=== PATIENT | female | born 1955 | race Caucasian/White ===

== ENCOUNTER → 2017-04-12 | Outpatient (CLI) | payer MEDICAID ==
--- NOTE | 2017-04-19 16:45 | RADIOLOGY REPORT (SQ) ---
EXAM DESCRIPTION: NM BONE SCAN LIMITED COMPLETED DATE/TIME: 04/12/2017 2:11 pm REASON FOR STUDY: PAIN IN R HIP M25.551 PAIN IN RIGHT HIP COMPARISON: Bilateral hip films 02/10/2017 RADIONUCLIDE AND DOSE: 21.3 millicuries Tc99m MDP. The route of agent administration: Intravenous. ADDITIONAL DRUGS AND DOSES: None. TECHNIQUE: Routine delayed images at 3 hours post radionuclide injection acquired of the bony skelet on including anterior and posterior whole-body projections and additional focused images as needed. LIMITATIONS: None. FINDINGS: BONES: Normal visualization without areas of photopenia or increased bony uptake of radiop harmaceutical. OTHER: No other significant finding. IMPRESSION: NORMAL BONE SCAN. COMMENT: Quality measure 147: Current bone scan is compared with any available plain radiographs, p rior bone scans, and CT/MRI. TECHNICAL DOCUMENTATION: JOB ID: [id number] [employer]- All Rights Reserved
== END ==
LOC: RAD 09:46
PROVIDERS: ATTEND Family Medicine
DX: M25.551 Pain in right hip (principal)
CPT/HCPCS: 78305; A9561; Q9969

== ENCOUNTER 2019-04-12 12:13 | Day surgery (SDC) | payer MEDICAID ==
[~2019-04-12 12:13] MED LIST: KETOROLAC TROMETHAMINE 0.45% 4 DROP/0.4 ML DROPERETTE OS PRN
[2019-04-12] MEDS: TETRACAINE HCL 0.5% OPH SOLN 4 ML OS PRN ×4 (12:43→13:20)
[2019-04-12] MEDS: CYCLOPENTOLATE 0.2%/PHENYLEPHRINE 1% OPH SOLN 2 ML OS PRN ×3 (12:44→13:05)
[2019-04-12] MEDS: BESIFLOXACIN HCL 0.6% OPH SUSP 5 ML BOTTLE OS PRN ×4 (12:44→13:41)
[2019-04-12] MEDS: TROPICAMIDE 1% OPH SOLN 15 ML OS PRN ×3 (12:44→13:05)
[2019-04-12] MEDS ORDERED: MIDAZOLAM 2 MG/2 ML INJ ONE (12:58)
[2019-04-12] MEDS: EPINEPHRINE INJ/PF 1 MG/1 ML AMPULE ONE ×2 (13:30)
[2019-04-12] MEDS: LIDOCAINE 1% INJ-PF (10 MG/ML) 30 ML SDV ONE ×2 (13:30)
[2019-04-12] MEDS: CHONDR SU A NA/HYALUR INTRAOC KIT (SURGICARE) ONE ×2 (13:30)
[2019-04-12] MEDS: DORZOLAMIDE HCL 2%/TIMOLOL MALEAT 0.5% OPH SOLN 10 ML OS PRN ×2 (13:41)
[2019-04-12] MEDS: TOBRAMYCIN SULFATE/DEXAMETH OPH OINTMENT 3.5 GM ONE ×2 (13:41)
== END 2019-04-12 14:14 | disposition home or self-care (01) ==
LOC: SC 12:13
PROVIDERS: ATTEND Ophthalmology
DX: H25.12 Age-related nuclear cataract, left eye (principal); Z79.899 Other long term (current) drug therapy; Z88.0 Allergy status to penicillin; Z88.2 Allergy status to sulfonamides; I11.9 Hypertensive heart disease without heart failure; E03.9 Hypothyroidism, unspecified; I25.2 Old myocardial infarction
CPT/HCPCS: 66984; V2632; J2250; J3490 ×5; J0171; 142

== ENCOUNTER 2019-05-03 06:31 | Day surgery (SDC) | payer MEDICAID ==
[~2019-05-03 06:31] MED LIST changes: +KETOROLAC TROMETHAMINE 0.45% 4 DROP/0.4 ML DROPERETTE OD PRN; -KETOROLAC TROMETHAMINE 0.45% 4 DROP/0.4 ML DROPERETTE OS PRN
[2019-05-03] MEDS: TROPICAMIDE 1% OPH SOLN 15 ML OD PRN ×3 (06:44→07:04)
[2019-05-03] MEDS: CYCLOPENTOLATE 0.2%/PHENYLEPHRINE 1% OPH SOLN 2 ML OD PRN ×3 (06:44→07:04)
[2019-05-03] MEDS: BESIFLOXACIN HCL 0.6% OPH SUSP 5 ML BOTTLE OD PRN ×4 (06:44→07:45)
[2019-05-03] MEDS: TETRACAINE HCL 0.5% OPH SOLN 4 ML OD PRN ×3 (06:45→07:28)
[2019-05-03] MEDS ORDERED: EPINEPHRINE INJ/PF 1 MG/1 ML AMPULE ONE (06:53)
[2019-05-03] MEDS ORDERED: LIDOCAINE 1% INJ-PF (10 MG/ML) 30 ML SDV ONE (06:53)
[2019-05-03] MEDS ORDERED: CHONDR SU A NA/HYALUR INTRAOC KIT (SURGICARE) ONE (06:54)
[2019-05-03] MEDS ORDERED: ONDANSETRON HCL INJ/PF 4 MG/2 ML SDV ONE (06:56)
[2019-05-03] MEDS ORDERED: MIDAZOLAM 2 MG/2 ML INJ ONE (06:56)
[2019-05-03] MEDS ORDERED: FENTANYL CITRATE INJ/PF 100 MCG/2 ML AMPUL ONE (06:57)
[2019-05-03] MEDS: TOBRAMYCIN SULFATE/DEXAMETH OPH OINTMENT 3.5 GM ONE ×2 (07:45)
[2019-05-03] MEDS: DORZOLAMIDE HCL 2%/TIMOLOL MALEAT 0.5% OPH SOLN 10 ML OD PRN ×2 (07:45)
== END 2019-05-03 08:18 | disposition home or self-care (01) ==
LOC: SC 06:31
PROVIDERS: ATTEND Ophthalmology
DX: H25.11 Age-related nuclear cataract, right eye (principal); Z98.42 Cataract extraction status, left eye; I11.9 Hypertensive heart disease without heart failure; E03.9 Hypothyroidism, unspecified; I25.2 Old myocardial infarction; Z87.891 Personal history of nicotine dependence; Z79.899 Other long term (current) drug therapy; Z88.0 Allergy status to penicillin; Z88.2 Allergy status to sulfonamides
CPT/HCPCS: 66984; V2632; J2250; J3490 ×5; J0171; J3010; J2405; 142

== ENCOUNTER 2020-01-17 21:17 | Emergency (ER) | payer MEDICAID ==
--- NOTE | 2020-01-17 22:12 | ER Document Report ---
ED Medical Screen (RME) - General Chief Complaint: Syncope Stated Complaint: POSSIBLE BROKEN ARM Time Seen by Provider: 01/17/20 22:06 Primary Care Provider: KRIS POLANCO PA-C [Primary Care Provider] - Follow up as needed Mode of Arrival: Medic Information source: Patient Notes: 64-year-old female presented to ED for chest pain house after she fell she has had pain in her left arm she could not get back up. She states her daughter was treated with anticoagulants prior to the emergency room tonight. She does have a history of [place] coronary artery disease CHF high blood pressure cholesterol hypothyroid depression bipolar. She does have a very painful swollen wrist left arm. She states she does not know why she passed out she was just walking and standing. I have greeted and performed a rapid initial assessment of this patient. A comprehensive ED assessment and evaluation of the patient, analysis of test results and completion of medical decision making process will be conducted by an additional ED providers. TRAVEL OUTSIDE OF THE [place] IN LAST 30 DAYS: No - Related Data Allergies/Adverse Reactions: Penicillins Allergy (Severe, Verified 05/03/19 06:50) Anaphylaxis Sulfa (Sulfonamide Antibiotics) Allergy (Severe, Verified 05/03/19 06:50) Anaphylaxis Past Medical History - Past Medical History Cardiac Medical History: Reports: Hx Heart Attack - ABT 4 YRS, Hx Hypertension Pulmonary Medical History: Denies: Hx Asthma Neurological Medical History: Denies: Hx Cerebrovascular Accident, Hx Seizures GI Medical History: Denies: Hx Hepatitis, Hx Hiatal Hernia, Hx Ulcer Musculoskeltal Medical History: Reports Hx Arthritis - Degenerative arthritis of her feet Psychiatric Medical History: Reports: Hx Bipolar Disorder, Hx Depression Infectious Medical History: Denies: Hx Hepatitis Past Surgical History: Reports: Hx Section. Denies: Hx Hysterectomy, Hx Mastectomy, Hx Open Heart Surgery, Hx Pacemaker - Immunizations Hx Diphtheria, Pertussis, Tetanus Vaccination: Yes Physical Exam - Vital signs Vitals: Temp Pulse Resp BP Pulse Ox 98.4 F 110 H 20 117/83 96 01/17/20 21:42 01/17/20 21:42 01/17/20 21:42 01/17/20 21:42 01/17/20 21:42 Course - Vital Signs Vital signs: Temp Pulse Resp BP Pulse Ox 98.4 F 110 H 20 117/83 96 01/17/20 21:42 01/17/20 21:42 01/17/20 21:42 01/17/20 21:42 01/17/20 21:42 Doctor's Discharge - Discharge Referrals: KRIS POLANCO PA-C [Primary Care Provider] - Follow up as needed
--- NOTE | 2020-01-17 23:09 | RADIOLOGY REPORT (SQ) ---
CLINICAL INDICATION: Syncope injury to left upper arm. Pain and deformity post trauma. TECHNIQUE: 2 view(s) were obtained of the left humerus. COMPARISON: None. FINDINGS: Acute impacted fracture of the surgical neck is identified. Rotation of the humeral head. Apparent avulsion of the greater tuberosity. Osteoarthritis. No other obvious bony injury is seen. Surrounding soft tissues are unremarkable. . IMPRESSION: Fracture of the surgical neck of the left humerus, as described.
--- NOTE | 2020-01-17 23:22 | RADIOLOGY REPORT (SQ) ---
EXAM DESCRIPTION: X-RAY CHEST- TWO VIEWS CLINICAL HISTORY: Syncope and injury to left upper arm COMPARISON: April 23, 2016 TECHNIQUE: 2 views of the chest FINDINGS: Findings related to left humerus fracture are separately reported and radiographs of the shoulder. Minimally displaced fracture of what appears to represent the right lateral fourth rib is stable when compared with prior chest radiograph. There are no discrete air space infiltrates, pneumothoraces or pleural effusions. The pulmonary vascularity is normal. The cardiomediastinal silhouette is normal in size. IMPRESSION: There are no acute lung parenchymal findings. Please see shoulder radiographs for further evaluation of this patient.
[2020-01-17 23:46] LABS: TOTAL CELLS COUNTED % (AUTO) 100 %
[2020-01-18] MEDS ORDERED: FENTANYL CITRATE INJ/PF 100 MCG/2 ML AMPUL IV ONE (00:11)
--- NOTE | 2020-01-18 01:04 | ER Document Report ---
ED General - General Chief Complaint: Syncope Stated Complaint: POSSIBLE BROKEN ARM Time Seen by Provider: 01/17/20 22:06 Primary Care Provider: JOSE DE JESUS RAMOS JR, DO [ACTIVE PROVISIONAL STAFF] - Follow up as needed KRIS POLANCO PA-C [Primary Care Provider] - Follow up as needed Mode of Arrival: Medic TRAVEL OUTSIDE OF THE [place] IN LAST 30 DAYS: No - HPI Notes: Patient is a 64-year-old female who presents to the emergency department for evaluation. Last night at approximately 2 AM she got up to go to the bathroom. She states she went to the bathroom, was walking back, when she fell. She is not really sure why she fell. She is unsure as to whether or not she felt dizzy. She denies tripping over anything. She did not hit her head, did not lose consciousness. She realized at that time that something was wrong with her arm, was unable to get up under her own power. She lied on the floor for approximately 25 minutes until her daughter came to help her. She states that she continues to have pain in her left arm, so she presents to the ER for further evaluation. She denies any numbness or tingling. On further questioning the patient is started doxepin 5 or 6 days ago. She states that she has been very drowsy and dizzy since starting this medication. She attributes the fall to the doxepin. - Related Data Allergies/Adverse Reactions: Penicillins Allergy (Severe, Verified 05/03/19 06:50) Anaphylaxis Sulfa (Sulfonamide Antibiotics) Allergy (Severe, Verified 05/03/19 06:50) Anaphylaxis Home Medications: amilodipine, requip, levothyroxine, doxepin, robaxin, loratadine, low dose asa, lisinopril, clozapam, lasix, abilify Past Medical History - General Information source: Patient - Social History Smoking Status: Former Smoker Family History: CAD, DM Patient has homicidal ideation: No - Past Medical History Cardiac Medical History: Reports: Hx Congestive Heart Failure, Hx Coronary Artery Disease, Hx Heart Attack - ABT 4 YRS, Hx Hypertension Pulmonary Medical History: Denies: Hx Asthma Neurological Medical History: Denies: Hx Cerebrovascular Accident, Hx Seizures GI Medical History: Denies: Hx Hepatitis, Hx Hiatal Hernia, Hx Ulcer Musculoskeletal Medical History: Reports Hx Arthritis - Degenerative arthritis of her feet Psychiatric Medical History: Reports: Hx Bipolar Disorder, Hx Depression Infectious Medical History: Denies: Hx Hepatitis Past Surgical History: Reports: Hx Section. Denies: Hx Hysterectomy, Hx Mastectomy, Hx Open Heart Surgery, Hx Pacemaker - Immunizations Hx Diphtheria, Pertussis, Tetanus Vaccination: Yes Review of Systems - Review of Systems Constitutional: No symptoms reported EENT: No symptoms reported Cardiovascular: No symptoms reported Respiratory: No symptoms reported Gastrointestinal: No symptoms reported Genitourinary: No symptoms reported Musculoskeletal: See HPI Skin: No symptoms reported Neurological/Psychological: No symptoms reported Physical Exam - Vital signs Vitals: Temp Pulse Resp BP Pulse Ox 98.4 F 110 H 20 117/83 96 01/17/20 21:42 01/17/20 21:42 01/17/20 21:42 01/17/20 21:42 01/17/20 21:42 - Notes Notes: Vital signs reviewed, please refer to chart. Head is normocephalic, atraumatic. Pupils equal round, reactive to light. Neck is supple without meningismus. Heart is regular rate and rhythm. Lungs are clear to auscultation bilaterally. Abdomen is soft, nontender, normoactive bowel sounds throughout. Extremities without cyanosis, clubbing. Posterior calves are nontender. Peripheral pulses are equal. Skin is warm and dry. Examination of the left upper extremity yields deformity at the left shoulder with extensive ecchymosis and edema. She is full range of motion at the elbow, wrist, fingers, thumb. No paresthesias or diminished sensation in the distribution of the axillary nerve. Plus 5 out of 5 wet machine tender strength, capillary refill is brisk, radial pulse 2+. Patient is awake, alert, oriented x3. Cranial nerves II - XII are grossly intact without focal neurological deficits. Strength is plus 5 out of 5 bilateral upper and lower extremities. Sensation is intact. Reflexes symmetrical. Intact [id number], rapid alternating movements, [id number]. Course - Re-evaluation Re-evalutation: 01/18/20 01:04 Patient is a 64-year-old female who presents to the emergency department for evaluation. She fell, sustained a surgical neck fracture of the humerus on the left. She is neurovascularly intact distally. She is placed in a shoulder immobilizer. Laboratory investigations were obtained. My suspicion is that this is as a side effect of her doxepin. She is mildly hypotensive. I am awaiting chemistries, but the patient also doses her own Lasix based on the pre sence or absence of edema. Between this, the Abilify, and other sedating medications, I suspect they are responsible for her symptoms. The patient states she has been extremely drowsy since taking the doxepin and she would like to quit taking it. She has been on it for less than a week. At this point, patient is stable, we will continue to monitor. 01/18/20 01:42 Still awaiting blood work, but patient's shoulder immobilizer is in place. She is neurovascularly intact still. I talked to her about her orthostatic blood pressures. She is not overly dehydrated, but her blood pressure did drop positionally. She admits she has been taking 2 Lasix daily for quite some time, and has not had edema for quite some time. I recommended the patient that she back off and only take 1 Lasix until her edema returns, or at least until directed by another provider. She voiced understanding. Patient is currently stable, awaiting further labs. 01/18/20 03:54 Notified by nursing at discharge the patient's heart rate was 108 and her blood pressure was in the 90s. I went back to evaluate the patient. She has absolutely no symptoms whatsoever. I do suspect she is slightly dry, but she was resistant to receiving any IV fluids. I told her she should not take any Lasix today at all. She voiced understanding. Nursing was present. The patient states that her only complaint at this time is pain in her left shoulder. Again she is reminded to not take Lasix today. She is to resume taking only one Lasix daily and follow-up closely with her primary care provider. - Vital Signs Vital signs: Temp Pulse Resp BP Pulse Ox 98.4 F 105 H 19 102/76 94 01/17/20 21:42 01/18/20 01:17 01/18/20 02:31 01/18/20 02:31 01/18/20 02:31 - Laboratory Result Diagrams: 01/18/20 01:39 01/18/20 01:39 Laboratory results interpreted by me: 01/18/20 01/18/20 01/18/20 01:39 01:39 03:13 WBC 12.0 H RDW 14.9 H Lymph % (Auto) 10.0 L Absolute Neuts (auto) 9.6 H Seg Neutrophils % 79.8 H Creatinine 1.36 H Est GFR ( Amer) 47 L Est GFR (MDRD) Non-Af 39 L Glucose 139 H Creatine Kinase 426 H Urine Protein 30 H Urine Blood SMALL H Ur Leukocyte Esterase LARGE H - Diagnostic Test Radiology reviewed: Image reviewed, Reports reviewed Radiology results interpreted by me: 01/18/20 01:07 Chest X-Ray 01/17/20 22:12 IMPRESSION: There are no acute lung parenchymal findings. Please see shoulder radiographs for further evaluation of this patient. Humerus X-Ray 01/17/20 22:12 IMPRESSION: Fracture of the surgical neck of the left humerus, as described. - EKG Interpretation by Me Additional EKG results interpreted by me: 01/18/20 01:07 Sinus mechanism with a rate of 93 bpm. Normal axis and intervals. No acute ST changes concerning for ischemia or infarction. Much improved for ischemic changes when compared to prior study. Discharge - Discharge Clinical Impression: Closed fracture of left proximal humerus Condition: Stable Disposition: HOME, SELF-CARE Instructions: Fracture Proximal Humerus Additional Instructions: Stow as needed for severe pain. Please watch for dizziness, drowsiness, constipation with this medication. Please take with food. I suspect that your dizziness and fall may have been secondary to the doxepin. Discussed discont inue this medication with your provider. Otherwise, follow-up with orthopedics this week in regards to your fracture. Return to the emergency department with worsening or new concerning symptoms of any sort. Referrals: KRIS POLANCO PA-C [Primary Care Provider] - Follow up as needed JOSE DE JESUS RAMOS JR, DO [ACTIVE PROVISIONAL STAFF] - Follow up as needed
[2020-01-18 02:04] LABS: ABSOLUTE BASOPHILS # (AUTO) 0.1 10^3/uL (0.0-0.2); ABSOLUTE LYMPHOCYTES (AUTO) 1.2 10^3/uL (0.5-4.7); ABSOLUTE MONOCYTES (AUTO) 1.1 10^3/uL (0.1-1.4); ABSOLUTE NEUT (AUTO) 9.6 10^3/uL (1.7-8.2); BASOPHILS % (AUTO) 0.6 % (0-2); EOSINOPHILS % (AUTO) 0.2 % (0-6); HEMATOCRIT 39.5 % (36.0-47.0); HEMOGLOBIN 12.8 g/dL (12.0-15.5); MEAN CORPUSCULAR HEMOGLOBIN 28.3 pg (27.0-33.4); MEAN CORPUSCULAR HGB CONC 32.5 g/dL (32.0-36.0); MEAN CORPUSCULAR VOLUME 87 fl (80-97); MONOCYTES % (AUTO) 9.4 % (3-13); PLATELET COUNT 283 10^3/uL (150-450); RED BLOOD COUNT 4.54 10^6/uL (3.72-5.28); RED CELL DISTRIBUTION WIDTH 14.9 % (11.5-14.0); SEGMENTED NEUTROPHILS % (AUTO) 79.8 % (42-78); TOTAL CELLS COUNTED % (AUTO) 100 %
[2020-01-18 02:17] LABS: ALKALINE PHOSPHATASE 120 U/L (38-126); ANION GAP 11 (5-19); ASPARTATE AMINO TRANSFERASE 25 U/L (14-36); BILIRUBIN,DIRECT 0.3 mg/dL (0.0-0.4); BILIRUBIN,TOTAL 0.5 mg/dL (0.2-1.3); BLOOD UREA NITROGEN 17 mg/dL (7-20); CALCIUM 8.8 mg/dL (8.4-10.2); CARBON DIOXIDE 25 mmol/L (22-30); CHLORIDE 103 mmol/L (98-107); CREATINE KINASE 426 U/L (30-135); GLUCOSE 139 mg/dL (75-110); POTASSIUM 3.9 mmol/L (3.6-5.0); TOTAL PROTEIN 6.7 g/dL (6.3-8.2)
[2020-01-18 03:25] LABS: APPEARANCE,URINE CLOUDY; BILIRUBIN,URINE NEGATIVE (NEGATIVE); COLOR,URINE AMBER; GLUCOSE, URINE NEGATIVE (NEGATIVE); KETONES,URINE NEGATIVE (NEGATIVE); LEUKOCYTE ESTERASE,URINE LARGE (NEGATIVE); NITRITE,URINE NEGATIVE (NEGATIVE); PROTEIN,URINE 30 mg/dL (NEGATIVE); URINE SPECIFIC GRAVITY 1.014; UROBILINOGEN,URINE NEGATIVE mg/dL (<2.0)
[2020-01-18 03:30] LABS: ADD MANUAL MICROSCOPIC YES; WBC,URINE 30-50 /HPF
[2020-01-18] MEDS ORDERED: HYDROCODONE/ACETAMINOPHEN 5-325 MG (6 TAB/ER DISP) PO PRN (03:39)
[2020-01-18 04:05] VITALS: BP 91/68
--- NOTE | 2020-01-18 10:11 | EKG REPORT ---
SEVERITY:- NORMAL ECG - SINUS RHYTHM : Confirmed by: Colette Chisholm MD 18-Jan-2020 10:11:13
== END 2020-01-18 03:36 | disposition home or self-care (01) ==
LOC: ER 21:17
DX: S42.202A Unspecified fracture of upper end of left humerus, initial encounter for closed fracture (principal); R55 Syncope and collapse; R42 Dizziness and giddiness; W19.XXXA Unspecified fall, initial encounter; Z88.0 Allergy status to penicillin; Z88.2 Allergy status to sulfonamides; Z79.899 Other long term (current) drug therapy; Z79.82 Long term (current) use of aspirin; I50.9 Heart failure, unspecified; I25.10 Atherosclerotic heart disease of native coronary artery without angina pectoris; I25.2 Old myocardial infarction; I11.0 Hypertensive heart disease with heart failure; Z87.891 Personal history of nicotine dependence
CPT/HCPCS: 93005; 99285; 96374; 36415; 87086; 82550; 85025; 80053; 81001; 84484; 71046; 73060; 93010; J3010

== ENCOUNTER → 2020-02-01 | Outpatient (CLI) | payer MEDICARE, MEDICAID ==
--- NOTE | 2020-02-01 16:11 | RADIOLOGY REPORT (SQ) ---
EXAM DESCRIPTION: CT LT UPPER EXTREMITY WITHOUT IMAGES COMPLETED DATE/TIME: 02/01/2020 3:40 pm REASON FOR STUDY: S42.212A UNSP DISP FX OF SURGICAL NECK OF LEFT HUMERUS, INIT COMPARISON: None. TECHNIQUE: Axial imaging performed through the Left shoulder and proximal humerus. with reformatted coronal and sagittal imaging windowed for bone and soft tissues. Images saved to PAC S. 3D IMAGING: Were 3D images as MIP, SSD, or volume rendering performed at the work station? Yes LIMITATIONS: None. FINDINGS: SOFT TISSUES: No foreign body. BONY STRUCTURES: Comminuted fracture of the surgical neck with greater than 1 cm of posterior displac ement the greater tuberosity. Anterior subluxation of the humeral head. MINERALIZATION: Normal. OTHER: No other significant finding. IMPRESSION: Surgical neck fracture as described. Reading location - IP/workstation name: [email or web address]
== END ==
LOC: RAD 15:26
PROVIDERS: ATTEND Orthopaedic Surgery
DX: S42.212A Unspecified displaced fracture of surgical neck of left humerus, initial encounter for closed fracture (principal); X58.XXXA Exposure to other specified factors, initial encounter; Y93.9 Activity, unspecified; Y92.9 Unspecified place or not applicable

== ENCOUNTER → 2020-02-06 | Outpatient (CLI) | payer MEDICARE, MEDICAID ==
[2020-02-06 16:54] LABS: ABSOLUTE BASOPHILS # (AUTO) 0.2 10^3/uL (0.0-0.2); ABSOLUTE EOSINOPHILS # (AUTO) 0.1 10^3/uL (0.0-0.6); ABSOLUTE LYMPHOCYTES (AUTO) 1.9 10^3/uL (0.5-4.7); ABSOLUTE MONOCYTES (AUTO) 0.5 10^3/uL (0.1-1.4); ABSOLUTE NEUT (AUTO) 6.2 10^3/uL (1.7-8.2); BASOPHILS % (AUTO) 1.7 % (0-2); EOSINOPHILS % (AUTO) 1.1 % (0-6); HEMATOCRIT 37.3 % (36.0-47.0); HEMOGLOBIN 12.5 g/dL (12.0-15.5); LYMPHOCYTES % (AUTO) 21.7 % (13-45); MEAN CORPUSCULAR HEMOGLOBIN 29.1 pg (27.0-33.4); MEAN CORPUSCULAR HGB CONC 33.6 g/dL (32.0-36.0); MEAN CORPUSCULAR VOLUME 87 fl (80-97); PLATELET COUNT 433 10^3/uL (150-450); RED CELL DISTRIBUTION WIDTH 14.8 % (11.5-14.0); SEGMENTED NEUTROPHILS % (AUTO) 69.5 % (42-78); TOTAL CELLS COUNTED % (AUTO) 100 %; WHITE BLOOD COUNT 8.9 10^3/uL (4.0-10.5)
[2020-02-06 16:57] LABS: APPEARANCE,URINE SLIGHTLY-CLOUDY; BILIRUBIN,URINE NEGATIVE (NEGATIVE); COLOR,URINE STRAW; GLUCOSE, URINE NEGATIVE (NEGATIVE); KETONES,URINE NEGATIVE (NEGATIVE); LEUKOCYTE ESTERASE,URINE SMALL (NEGATIVE); NITRITE,URINE NEGATIVE (NEGATIVE); PROTEIN,URINE NEGATIVE (NEGATIVE); URINE SPECIFIC GRAVITY 1.004; UROBILINOGEN,URINE NEGATIVE mg/dL (<2.0)
[2020-02-06 17:22] LABS: ALBUMIN 4.3 g/dL (3.5-5.0); ANION GAP 11 (5-19); BLOOD UREA NITROGEN 15 mg/dL (7-20); CALCIUM 9.4 mg/dL (8.4-10.2); CARBON DIOXIDE 24 mmol/L (22-30); CHLORIDE 103 mmol/L (98-107); GLUCOSE 95 mg/dL (75-110); POTASSIUM 3.8 mmol/L (3.6-5.0)
[2020-02-06 17:23] LABS: C-REACTIVE PROTEIN < 5.0 mg/L (<10.0)
[2020-02-06 17:57] LABS: ERYTHROCYTE SEDIMENTATION RATE 15 mm/hr (0-30)
--- NOTE | 2020-02-07 00:46 | EKG REPORT ---
SEVERITY:- NORMAL ECG - SINUS RHYTHM : Confirmed by: Sb Barragan 07-Feb-2020 00:46:07
--- NOTE | 2020-02-07 08:49 | RADIOLOGY REPORT (SQ) ---
EXAM DESCRIPTION: CHEST PA/LATERAL IMAGES COMPLETED DATE/TIME: 02/06/2020 4:31 pm REASON FOR STUDY: PRE-OP COMPARISON: 04/23/2016 EXAM PARAMETERS: NUMBER OF VIEWS: two views TECHNIQUE: Digital Frontal and Lateral radiographic views of the chest acquired. RADIATION DOSE: NA LIMITATIONS: Patient unable to lift the left arm for the lateral projection. FINDINGS: LUNGS AND PLEURA: No opacities, masses or pneumothorax. No pleural effusion. MEDIASTINUM AND HILAR STRUCTURES: No masses or contour abnormalities. HEART AND VASCULAR STRUCTURES: Heart normal size. No evidence for failure. BONES: Proximal left humerus fracture. HARDWARE: None in the chest. OTHER: No other significant finding. IMPRESSION: No acute findings in the chest. Fracture of the left proximal humerus. TECHNICAL DOCUMENTATION: JOB ID: [id number] 2010 [employer]- All Rights Reserved Reading location - IP/workstation name: [email or web address]
== END ==
LOC: OD 15:36
PROVIDERS: ATTEND Orthopaedic Surgery
DX: Z01.810 Encounter for preprocedural cardiovascular examination (principal); Z01.811 Encounter for preprocedural respiratory examination; Z01.812 Encounter for preprocedural laboratory examination; S42.202A Unspecified fracture of upper end of left humerus, initial encounter for closed fracture; X58.XXXA Exposure to other specified factors, initial encounter
CPT/HCPCS: 36415; 71046; 80048; 81001; 82040; 82306; 83036; 85025; 85652; 86140; 93005; 93010

== ENCOUNTER 2020-02-20 05:29 | Inpatient (IN) | payer MEDICARE, MEDICAID ==
[~2020-02-20 05:29] MED LIST changes: +ACETAMINOPHEN 325 MG TABLET PO PRN; +CEFAZOLIN 2 GM/D5W RTU 2 GM/50 ML RTUPB IV PRN; +CELECOXIB 200 MG CAPSULE PO PRN; +GABAPENTIN 100 MG CAPSULE PO PRN; -KETOROLAC TROMETHAMINE 0.45% 4 DROP/0.4 ML DROPERETTE OD PRN; +LACTATED RINGERS 1000 ML IV PRN; +LIDOCAINE 0.5% INJ-PF (5 MG/ML) 50 ML SDV SUBCUT PRN; +OXYCODONE HCL SR 10 MG TABLET PO PRN; +SCOPOLAMINE HYDROBROMIDE 1.5 MG PATCH.TD72 TD PRN; +TRAMADOL HCL 50 MG TABLET PO PRN; +TRANEXAMIC ACID INJ/PF 1,000 MG/10 ML SDV IV PRN; +VANCOMYCIN HCL 1,000 MG in DEXTROSE 5%-WATER 250 ML IV PRN
[2020-02-20] MEDS ORDERED: SCOPOLAMINE HYDROBROMIDE 1.5 MG PATCH.TD72 ONE (06:22)
[2020-02-20] MEDS ORDERED: OXYCODONE HCL SR 10 MG TABLET PO ONE (06:22)
[2020-02-20] MEDS ORDERED: CELECOXIB 200 MG CAPSULE ONE (06:22)
[2020-02-20] MEDS ORDERED: CEFAZOLIN 2 GM/D5W RTU 2 GM/50 ML RTUPB IV ONE (06:22)
[2020-02-20] MEDS ORDERED: GABAPENTIN 100 MG CAPSULE ONE (06:22)
[2020-02-20] MEDS ORDERED: ACETAMINOPHEN 325 MG TABLET ONE (06:22)
[2020-02-20] MEDS ORDERED: TRAMADOL HCL 50 MG TABLET ONE (06:22)
[2020-02-20] MEDS ORDERED: FENTANYL CITRATE INJ/PF 250 MCG/5 ML AMPULE ONE ×2 (06:54→09:32)
[2020-02-20] MEDS ORDERED: MIDAZOLAM 2 MG/2 ML INJ ONE (06:54)
[2020-02-20] MEDS ORDERED: ONDANSETRON HCL INJ/PF 4 MG/2 ML SDV ONE (06:54)
[2020-02-20] MEDS ORDERED: EPHEDRINE SULFATE INJ 50 MG/1 ML AMPULE ONE (06:54)
[2020-02-20] MEDS ORDERED: DEXAMETHASONE SOD PHOS INJ 10 MG/1 ML VIAL IV ONE ×2 (06:55→14:00)
[2020-02-20] MEDS ORDERED: ONDANSETRON 4 MG TAB.RAPDIS PO PRN (06:55)
[2020-02-20] MEDS ORDERED: PANTOPRAZOLE SODIUM 20 MG TABLET.DR PO ONE (06:55)
[2020-02-20] MEDS ORDERED: TRANEXAMIC ACID INJ/PF 1,000 MG/10 ML SDV IV ONE (06:55)
[2020-02-20] MEDS ORDERED: MORPHINE SULFATE 10 MG/ML INJ IV PRN ×3 (06:55→08:53)
[2020-02-20] MEDS ORDERED: NORMAL SALINE 1000 ML 1,000 ML IV ONE (06:55)
[2020-02-20] MEDS ORDERED: PROPOFOL INJ 200 MG/20 ML VIAL IV ONE (06:55)
[2020-02-20] MEDS ORDERED: DOCUSATE SODIUM 100 MG CAPSULE PO PRN (06:55)
[2020-02-20] MEDS ORDERED: OXYCODONE HCL IR 5 MG TABLET PO PRN ×3 (06:55)
[2020-02-20] MEDS ORDERED: TRAMADOL HCL 50 MG TABLET PO PRN (06:55)
[2020-02-20] MEDS ORDERED: ZOLPIDEM TARTRATE 5 MG TABLET PO PRN (06:55)
[2020-02-20] MEDS ORDERED: DIPHENHYDRAMINE HCL 25 MG CAPSULE PO PRN (06:55)
[2020-02-20] MEDS ORDERED: ALBUTEROL SULFATE HFA (90 MCG/PUFF) 8 GM MDI (1 MDI/ER DISP) IH PRN (06:58)
[2020-02-20] MEDS ORDERED: ROPIVACAINE HCL 0.5% INJ/PF (5 MG/1 ML) 30 ML SDV ONE (07:06)
[2020-02-20] MEDS ORDERED: KETOROLAC TROMETHAMINE INJ/PF 30 MG/1 ML SDV ONE (07:18)
[2020-02-20] MEDS ORDERED: VANCOMYCIN HCL INJ 1000 MG VIAL ONE (07:18)
[2020-02-20] MEDS ORDERED: BUPIVACAINE HCL 0.25% /EPINEPHRINE INJ/PF 30 ML SDV ONE (07:19)
[2020-02-20] MEDS ORDERED: MEPERIDINE HCL/PF INJ 25 MG/1 ML DISP.SYRIN IV PRN (08:53)
[2020-02-20] MEDS ORDERED: DIPHENHYDRAMINE HCL 50 MG/ML VIAL IV PRN (08:53)
[2020-02-20] MEDS ORDERED: PROMETHAZINE HCL INJ 25 MG/1 ML VIAL IV PRN ×2 (08:53)
[2020-02-20] MEDS ORDERED: ONDANSETRON HCL INJ/PF 4 MG/2 ML SDV IV PRN (08:53)
[2020-02-20] MEDS ORDERED: OXYCODONE-ACETAMINOPHEN 5-325 MG TABLET PO PRN ×2 (08:53)
[2020-02-20] MEDS ORDERED: FENTANYL CITRATE INJ/PF 100 MCG/2 ML AMPUL IV PRN ×3 (08:53)
[2020-02-20] MEDS ORDERED: TRANEXAMIC ACID INJ/PF 1,000 MG/10 ML SDV ONE (08:55)
[2020-02-20] MEDS ORDERED: ALBUTEROL SULFATE HFA (90 MCG/PUFF) 8 GM MDI IH PRN (09:44)
[2020-02-20] MEDS ORDERED: FLUTICASONE NASAL SPRAY 50 MCG/SPRY 120 SPRAY/16 GM NASL SCH (10:00)
[2020-02-20] MEDS ORDERED: LEVOTHYROXINE SODIUM 0.025 MG TABLET PO SCH (10:00)
[2020-02-20] MEDS ORDERED: (PENDING PHARMACY ID) (Lisinopril [Lisinopril] 20 MG) PO SCH (10:00)
[2020-02-20] MEDS ORDERED: ARIPIPRAZOLE 15 MG PO SCH (10:00)
[2020-02-20] MEDS ORDERED: PANTOPRAZOLE SODIUM 20 MG TABLET.DR PO SCH (10:00)
[2020-02-20] MEDS ORDERED: FENTANYL CITRATE INJ/PF 100 MCG/2 ML AMPUL ONE (11:25)
--- NOTE | 2020-02-20 11:44 | Operative Report ---
Operative Report DATE OF SURGERY: 02/20/20 PREOPERATIVE DIAGNOSIS: Comminuted closed left proximal humerus fracture POSTOPERATIVE DIAGNOSIS: Comminuted closed left proximal humerus fracture OPERATION: Left reverse total shoulder arthroplasty SURGEON: JOSE DE JESUS RAMOS JR ANESTHESIA: GA TISSUE REMOVED OR ALTERED: None COMPLICATIONS: None ESTIMATED BLOOD LOSS: 300 cc PROCEDURE: Implants: [employer] equinox reverse total shoulder +0 humeral tray, +0 36 mm humeral liner, 36 mm reverse small glenosphere, a 10 mm press-fit stem Patient sustained a left proximal humerus fracture approximately 1 month ago. Initially the reduction appeared appropriate for nonoperative management however upon subsequent visits in the office it was apparent that the displacement was considerable including transient potential dislocation of the humeral head with inability for the patient to move her arm and ongoing deformity and pain. Due to these changes and the patient desire to achieve a good functional outcome we proceeded with left reverse total shoulder arthroplasty. The patient was brought to the operating suite laid supine on the operating table. They are placed under general anesthesia. Preoperatively there given a scalene block. There were given 2 g Ancef and 1 g of vancomycin. After adequate anesthesia the patient was placed into beachchair position and the left upper extremity was then prepped and draped in sterile sterile fashion. An appropriate timeout was performed and incision was made to the left shoulder. A standard deltopectoral approach was performed. The cephalic vein was encountered and taken laterally. Upon reaching clavipectoral fascia the ability to identify the bicipital groove and the biceps was difficult. This is due to 1 month of significant deformity and displacement. I was able to carefully dissect around the deltoid bluntly, followed by identifying the pectoral insertion and then proceeding to identify the bicipital groove and then carried this into the glenohumeral joint through the capsule. After doing this we were able to remove the humeral head. The greater tuberosity fragment was quite large and adherent to the posterior capsular tissue. This took a significant amount of gentle retraction and careful dissection in order to release it off of the posterior capsule. Upon releasing it were able to get 2 sutures placed through the tendon bone interface however the amount of excursion that I was able to get was disappointing. We turned our attention to the subscapularis which was also retracted and scarred into place with a bony fragment at the level of the glenoid. Careful dissection allowed for freeing this from the surrounding tissue and then placing 2 sutures through the tendon to bone interface. The sutures were snapped and used to help retract and gain access to the joint. We then turned our attention to the humerus and reamed up until we achieved a 13 reamer. The patient was small and the height of 5-1/2 cm off of the proximal pack coral insertion appeared to lead to a implant that was too proud. We turned our attention to the glenoid and plan to return to the humerus at the time that we could appropriately reduce and assess tension. The periphery of the glenoid was carefully exposed taking care to remain on bone with any release of capsular structures both inferiorly posteriorly and anteriorly. The biceps tendon was found to be ruptured and this was removed to its stump at the superior glenoid. Bone fragments were removed. We then exposed the coracoid and secured the GPS tracker with 2 screws. Following this we were able to gain appropriate acquisition of our data points for registration. The GPS drill was initially introduced and ensured appropriate position with the GPS computer, followed by the larger drill bit, followed by the small reamer and subsequently the large reamer. We were satisfied with the amount of bony resection and coverage. The small glenoid baseplate was then selected. The cage was packed with morselized humeral head bone. The glenohumeral joint was then copiously irrigated with sterile saline solution. Baseplate was then impacted into place. Using navigation screws were drilled, measured, and placed into the available bone. Excellent bite was achieved in all 4 screws and the locking caps were placed on top. The glenosphere was placed onto a clean and dried baseplate and then screwed in place. We then returned to the humerus where we trialed with a size 10 standard stem. I was able to impact this to a point that a significant of great blast was approximating the metaphyseal bone. Upon reduction with a 0 humeral tray and 0 humeral liner we achieved excellent range of motion, tension, instability. Due to the significant bone loss the decision was made to cement. The wound was copiously irrigated again. 2 drill holes were made on the lateral cortex of the humerus and a #2 FiberWire was passed through in order to allow for subsequent vertical suture use. A Gelfoam was placed on the humeral canal as a cement restrictor. Cement was inserted into the proximal humerus, the stem was then gently introduced and then lightly impacted in place. After appropriate cement duration, a 0 baseplate was screwed onto the humeral stem. The 0 humeral liner was then impacted into place. The shoulder was reduced and again achieved excellent balance. The tuberosities were then approximated as close as possible. Given the chronicity of the fracture, it was difficult to achieve full excursion of the tendons. The tuberosities were sutured in place followed by the vertical suture through the humerus that was then incorporated into this construct and used to keep superior and proximal migration of the tuberosities. The wound again was copiously irrigated, followed by application of 1 g of vancomycin into the joint. A small amount of this was preserved in order to use in the soft tissue. The deltopectoral interval was then closed with a running locked 2-0 PDS. After achieving a tight closure of this interval, the wound was irrigated again followed by application of the final amount of vancomycin. Subcutaneous tissue was then closed with a running barbed 2-0 Monocryl. A running barbed 3-0 Monocryl was used in the skin. Sterile dressing was then rosario mounika. The patient was awakened from anesthesia and transferred to PACU in stable condition.
--- NOTE | 2020-02-20 12:40 | RADIOLOGY REPORT (SQ) ---
EXAM DESCRIPTION: SHOULDER LEFT 2 OR MORE VIEWS IMAGES COMPLETED DATE/TIME: 02/20/2020 12:26 pm REASON FOR STUDY: post op S42.212A UNSP DISP FX OF SURGICAL NECK OF LEFT HUMERUS, INIT COMPARISON: 02/06/2020. NUMBER OF VIEWS: Three views. TECHNIQUE: Internal rotation, external rotation, and Y view images acquired of the left shoulder. LIMITATIONS: None. FINDINGS: Surgical neck fracture status post interval reverse shoulder arthroplasty. No unexpected findings. Visualize lungs clear. IMPRESSION: Interval reverse shoulder arthroplasty. TECHNICAL DOCUMENTATION: JOB ID: [id number] 2010 [employer]- All Rights Reserved Reading location - IP/workstation name: [email or web address]
[2020-02-20] MEDS ORDERED: SUCCINYLCHOLINE CHLORIDE INJ 200 MG/10 ML VIAL ONE (13:21)
[2020-02-20] MEDS: ACETAMINOPHEN 325 MG TABLET PO SCH ×2 (13:43→18:37)
[2020-02-20] MEDS: AMLODIPINE BESYLATE 5 MG TABLET PO SCH (13:43)
[2020-02-20] MEDS: ARIPIPRAZOLE 5 MG TABLET PO SCH (13:44)
[2020-02-20] MEDS: FUROSEMIDE 20 MG TABLET PO SCH (13:44)
[2020-02-20] MEDS: LORATADINE 10 MG TABLET PO SCH (13:44)
[2020-02-20] MEDS: POLYETHYLENE GLYCOL 3350 POWDER 17 GM/1 PACKET PO SCH (13:45)
[2020-02-20] MEDS: GABAPENTIN 100 MG CAPSULE PO SCH ×2 (13:45→21:20)
[2020-02-20] MEDS: KETOROLAC TROMETHAMINE INJ/PF 30 MG/1 ML SDV IV SCH ×2 (13:53→21:21)
[2020-02-20] MEDS ORDERED: CEFAZOLIN 2 GM/D5W RTU 2 GM/50 ML RTUPB IV SCH (14:00)
[2020-02-20] MEDS: CEFAZOLIN SODIUM 2 GM in DEXTROSE 5%-WATER 100 ML IV SCH ×2 (15:44→21:20)
[2020-02-20] MEDS: OXYCODONE HCL IR 5 MG TABLET PO PRN ×2 (15:52→19:55)
[2020-02-20] MEDS: PANTOPRAZOLE SODIUM 20 MG TABLET.DR PO SCH (17:10)
[2020-02-20] MEDS: LISINOPRIL 10 MG TABLET PO SCH (21:20)
[2020-02-20] MEDS ORDERED: ROPINIROLE HCL 3 MG PO SCH (22:00)
[2020-02-20] MEDS ORDERED: ROPINIROLE HCL 1 MG TABLET PO SCH (22:00)
[2020-02-21] MEDS: ACETAMINOPHEN 325 MG TABLET PO SCH ×3 (00:04→11:58)
[2020-02-21] MEDS: OXYCODONE HCL IR 5 MG TABLET PO PRN ×3 (01:53→12:00)
[2020-02-21] MEDS: KETOROLAC TROMETHAMINE INJ/PF 30 MG/1 ML SDV IV SCH ×2 (05:09→14:42)
[2020-02-21] MEDS ORDERED: LEVOTHYROXINE SODIUM 0.025 MG TABLET PO SCH (06:00)
--- NOTE | 2020-02-21 08:01 | PDOC PROGRESS REPORT ---
Subjective Progress Note for:: 02/21/20 Subjective:: Pain well controlled. Patient has been working well with physical therapy overnight. No acute events overnight. Reason For Visit: S42.212A UNSP DISP FX OF SURGICAL NECK OF LEFT HUM Physical Exam Vital Signs: Temp Pulse Resp BP Pulse Ox 98.0 F 72 16 139/63 H 98 02/21/20 05:06 02/21/20 05:06 02/21/20 05:06 02/21/20 05:06 02/21/20 05:06 Intake & Output 02/20/20 02/21/20 02/22/20 06:59 06:59 06:59 Intake Total 0 5080 Output Total 1200 Balance 0 3880 Physical Exam: No acute distress, alert and oriented x3 Left upper extremity sensation grossly intact to radial median and ulnar nerve. And axillary upper extremity motor function grossly intact to radian median ulnar nerve AIN and PIN and axillary Pulses 2+, capillary refill less than 2 seconds No deformity noted full range of motion of the elbow shoulder wrist and fingers without pain Compartments soft, no tenderness to palpation Dressing clean dry and intact. Sling in place Results Laboratory Results: 02/20/20 06:36 Impressions: Shoulder X-Ray 02/20/20 00:00 IMPRESSION: Interval reverse shoulder arthroplasty. Assessment & Plan - Diagnosis (1) Status post reverse total arthroplasty of left shoulder Is this a current diagnosis for this admission?: Yes Plan: - 2 doses of Ancef postoperatively q 8 hours to complete 24 hours perioperatively - PT/OT -multimodal pain management to avoid excessive narcotics, including gabapentin, tramadol, Toradol, acetaminophen. -Dressing should not be removed for 7 to 10 days until seen in the office -May shower with the dressing intact, if it starts to come off she should not get the incision wet. -Follow-up with Dr. Toy Rosales, orthopedic surgeon at [facility] for surgery, in 10 days. Call for an appointment. . [address], [place] [address] - Time Time Spent with patient: Less than 15 minutes
[2020-02-21] MEDS ORDERED: FLUTICASONE NASAL SPRAY 50 MCG/SPRY 120 SPRAY/16 GM NASL SCH (10:00)
[2020-02-21] MEDS: LORATADINE 10 MG TABLET PO SCH (10:12)
[2020-02-21] MEDS: PANTOPRAZOLE SODIUM 20 MG TABLET.DR PO SCH (10:12)
[2020-02-21] MEDS: GABAPENTIN 100 MG CAPSULE PO SCH (10:12)
[2020-02-21] MEDS: LISINOPRIL 10 MG TABLET PO SCH (10:13)
[2020-02-21] MEDS: AMLODIPINE BESYLATE 5 MG TABLET PO SCH (10:14)
[2020-02-21] MEDS: ARIPIPRAZOLE 5 MG TABLET PO SCH (10:20)
[2020-02-21] MEDS: FUROSEMIDE 20 MG TABLET PO SCH (10:22)
[2020-02-21] MEDS: POLYETHYLENE GLYCOL 3350 POWDER 17 GM/1 PACKET PO SCH (10:28)
[2020-02-21 12:03] VITALS: BP 113/55
== END 2020-02-21 14:50 | disposition home health service (06) | DRG 483 ==
LOC: INOR 05:29 → EDSTATUS 07:30 → 4S 12:30
PROVIDERS: ADMIT Orthopaedic Surgery; ATTEND Orthopaedic Surgery
PROC: 0RRK00Z Replacement of Left Shoulder Joint with Reverse Ball and Socket Synthetic Substitute, Open Approach (ICD-10-PCS; principal; 2020-02-20 07:30)
DX: S42.212A Unspecified displaced fracture of surgical neck of left humerus, initial encounter for closed fracture (principal); W19.XXXA Unspecified fall, initial encounter; I11.0 Hypertensive heart disease with heart failure; I25.10 Atherosclerotic heart disease of native coronary artery without angina pectoris; I50.9 Heart failure, unspecified; E03.9 Hypothyroidism, unspecified; I25.2 Old myocardial infarction; Z88.0 Allergy status to penicillin; Z88.2 Allergy status to sulfonamides; Z20.828 Contact with and (suspected) exposure to other viral communicable diseases; F31.9 Bipolar disorder, unspecified; K21.9 Gastro-esophageal reflux disease without esophagitis; Z82.3 Family history of stroke; Z82.49 Family history of ischemic heart disease and other diseases of the circulatory system
CPT/HCPCS: 01638; 36415; 84132; 87635; C9803; J0330; J0690; J1100; J1885; J2250; J2405; J2704; J2795; J3010; J3370; J3490; J7060; J7120

== ENCOUNTER 2020-03-27 11:28 | Inpatient (IN) | payer MEDICARE, MEDICAID ==
[~2020-03-27 11:28] MED LIST changes: -ACETAMINOPHEN 325 MG TABLET PO PRN; +CEFAZOLIN 2 GM/D5W RTU 2 GM/50 ML RTUPB IV ONE; -CELECOXIB 200 MG CAPSULE PO PRN; +DEXAMETHASONE SOD PHOS INJ 10 MG/1 ML VIAL IV ONE; +DEXAMETHASONE SOD PHOSPHATE INJ 4 MG/1 ML VIAL ONE; +DIPHENHYDRAMINE HCL 25 MG CAPSULE PO PRN; +DOCUSATE SODIUM 100 MG CAPSULE PO PRN; -GABAPENTIN 100 MG CAPSULE PO PRN; -LACTATED RINGERS 1000 ML IV PRN; -LIDOCAINE 0.5% INJ-PF (5 MG/ML) 50 ML SDV SUBCUT PRN; +MORPHINE SULFATE 10 MG/ML INJ IV PRN; +NORMAL SALINE 1000 ML 1,000 ML IV ONE; +ONDANSETRON 4 MG TAB.RAPDIS PO PRN; +ONDANSETRON HCL INJ/PF 4 MG/2 ML SDV ONE; +OXYCODONE HCL IR 5 MG TABLET PO PRN; -OXYCODONE HCL SR 10 MG TABLET PO PRN; +PANTOPRAZOLE SODIUM 20 MG TABLET.DR PO ONE; +PHENYLEPHRINE HCL INJ/PF 10 MG/1 ML SDV ONE; +ROCURONIUM BROMIDE INJ 50 MG/5 ML VIAL IV ONE; -SCOPOLAMINE HYDROBROMIDE 1.5 MG PATCH.TD72 TD PRN; +SUCCINYLCHOLINE CHLORIDE INJ 200 MG/10 ML VIAL ONE; +TRANEXAMIC ACID INJ/PF 1,000 MG/10 ML SDV IV ONE; -TRANEXAMIC ACID INJ/PF 1,000 MG/10 ML SDV IV PRN; -VANCOMYCIN HCL 1,000 MG in DEXTROSE 5%-WATER 250 ML IV PRN; +ZOLPIDEM TARTRATE 5 MG TABLET PO PRN
[2020-03-27] MEDS ORDERED: SCOPOLAMINE HYDROBROMIDE 1.5 MG PATCH.TD72 ONE (12:39)
[2020-03-27] MEDS ORDERED: ONDANSETRON HCL INJ/PF 4 MG/2 ML SDV ONE (13:53)
[2020-03-27] MEDS ORDERED: DEXAMETHASONE SOD PHOSPHATE INJ 4 MG/1 ML VIAL ONE (13:53)
[2020-03-27] MEDS ORDERED: FENTANYL CITRATE INJ/PF 250 MCG/5 ML AMPULE ONE (13:53)
[2020-03-27] MEDS ORDERED: MIDAZOLAM 2 MG/2 ML INJ ONE (13:53)
[2020-03-27] MEDS ORDERED: EPHEDRINE SULFATE INJ 50 MG/1 ML AMPULE ONE (13:53)
[2020-03-27] MEDS ORDERED: PROPOFOL INJ 200 MG/20 ML VIAL IV ONE (13:53)
[2020-03-27] MEDS ORDERED: SUGAMMADEX SODIUM 200 MG/2 ML SDV IV ONE (13:53)
[2020-03-27] MEDS ORDERED: CEFAZOLIN 2 GM/D5W RTU 2 GM/50 ML RTUPB IV SCH (14:00)
[2020-03-27] MEDS ORDERED: KETOROLAC TROMETHAMINE INJ/PF 30 MG/1 ML SDV IV SCH (14:00)
[2020-03-27] MEDS ORDERED: BACITRACIN INJ 50,000 UNIT VIAL ONE (14:50)
[2020-03-27] MEDS ORDERED: GENTAMICIN SULFATE INJ 80 MG/2 ML VIAL ONE (14:50)
[2020-03-27] MEDS ORDERED: MORPHINE SULFATE 10 MG/ML INJ IV PRN (15:28)
[2020-03-27] MEDS ORDERED: PROMETHAZINE HCL INJ 25 MG/1 ML VIAL IV PRN (15:28)
[2020-03-27] MEDS ORDERED: ONDANSETRON HCL INJ/PF 4 MG/2 ML SDV IV PRN (15:28)
[2020-03-27] MEDS ORDERED: DIPHENHYDRAMINE HCL 50 MG/ML VIAL IV PRN (15:28)
[2020-03-27] MEDS ORDERED: FENTANYL CITRATE INJ/PF 100 MCG/2 ML AMPUL IV PRN ×3 (15:28)
[2020-03-27] MEDS ORDERED: MEPERIDINE HCL/PF INJ 25 MG/1 ML DISP.SYRIN IV PRN (15:28)
[2020-03-27] MEDS ORDERED: VANCOMYCIN HCL INJ 1000 MG VIAL ONE (15:54)
[2020-03-27] MEDS: CELECOXIB 200 MG CAPSULE PO SCH (17:51)
[2020-03-27] MEDS: GABAPENTIN 100 MG CAPSULE PO SCH ×2 (17:51→21:42)
[2020-03-27] MEDS: ACETAMINOPHEN 325 MG TABLET PO SCH ×3 (17:52→23:26)
[2020-03-27] MEDS: CEFAZOLIN SODIUM 2 GM in DEXTROSE 5%-WATER 100 ML IV SCH ×2 (17:52→21:46)
[2020-03-27] MEDS: ASPIRIN 325 MG TABLET PO SCH (18:03)
[2020-03-27] MEDS: KETOROLAC TROMETHAMINE INJ/PF 30 MG/1 ML SDV IV SCH (18:04)
[2020-03-27] MEDS: POLYETHYLENE GLYCOL 3350 POWDER 17 GM/1 PACKET PO SCH (18:04)
[2020-03-27] MEDS ORDERED: ALBUTEROL SULFATE HFA (90 MCG/PUFF) 8 GM MDI (1 MDI/ER DISP) IH PRN (18:46)
[2020-03-27] MEDS ORDERED: TRAMADOL HCL 50 MG TABLET PO PRN (18:51)
[2020-03-27] MEDS ORDERED: ALBUTEROL SULFATE HFA (90 MCG/PUFF) 8 GM MDI IH PRN (19:01)
[2020-03-27] MEDS: LEVOTHYROXINE SODIUM 0.025 MG TABLET PO SCH (19:26)
--- NOTE | 2020-03-27 20:59 | Operative Report ---
Operative Report DATE OF SURGERY: 03/27/20 PREOPERATIVE DIAGNOSIS: Left Shoulder wound infection POSTOPERATIVE DIAGNOSIS: Left Shoulder wound infection OPERATION: Left Shoulder incision and debridement SURGEON: JOSE DE JESUS RAMOS JR ANESTHESIA: GA TISSUE REMOVED OR ALTERED: Multiple Cultures COMPLICATIONS: none ESTIMATED BLOOD LOSS: 100 cc PROCEDURE: Patient was seen in my office yesterday for a wound check. She was found to have a draining wound towards the distal aspect of her prior left reverse total shoulder arthroplasty incision. Mars purulence was appreciated in the office. At that time I made the decision to proceed with I&D, possible reverse total shoulder revision. The patient was then brought to the operating suite and laid supine on the operating table. They are placed under general anesthesia in the left upper extremities and prepped and draped in sterile sterile fashion. 2 g Ancef was provided intraoperatively but was held until cultures were taken. The prior incision was marked and incision was made both superior and inferior to the open part of the wound. The wound did open up approximately 3 cm x 1 cm at the distal quarter of the wound. A culture swab was used superficially followed by specimen placed in a culture cup. I gently explored the borders of the wound fo r any purulent pocket or sinus. Upon finding none, the wound was copiously irrigated with 3 L of saline. After this irrigation and irrisept rinse was applied and 2 minutes past followed by evacuation of the Aricept. More intentionally explored the periphery of the wound trying to identify any potential indication of a deeper infection, sinus tract, or potential communication with the joint. Very thorough and gentle exploration did not reveal any further infection. At that time the decision was made not to proceed any further and potentially contaminate a sterile joint. To further cultures were then taken and placed in specimen cup followed by thorough debridement of the base of the wound with a Meier. The edges of the prior open wound were ellipsed. After all loose or necrotic tissue had been removed I irrigated with another 6 L of sterile saline impregnated with gentamicin and bacitracin. 1 g of vancomycin was then applied to the wound bed and the wound was gently approximated with inverted interrupted 2-0 Monocryl in the subcutaneous tissue followed by 3-0 nylon tension sutures. A portion of the wound that was difficult to close measured approximately 2 cm x 5 mm. A Xeroform was placed over the wound followed by a black sponge and a wound VAC was applied. The patient was awakened from anesthesia and transferred to the PACU in stable condition. Of note the patient was taken through range of motion still found to have excellent balance of her left reverse total shoulder arthroplasty with near full range of motion without signs of arthrofibrosis.
[2020-03-27] MEDS: LISINOPRIL 10 MG TABLET PO SCH (21:41)
[2020-03-27] MEDS: ROPINIROLE HCL 2 MG TABLET PO SCH (21:48)
[2020-03-27] MEDS: OXYCODONE HCL IR 5 MG TABLET PO PRN (21:53)
[2020-03-27] MEDS ORDERED: ROPINIROLE HCL 3 MG PO SCH (22:00)
[2020-03-28] MEDS ORDERED: ACETAMINOPHEN 325 MG TABLET PO SCH
[2020-03-28] MEDS: KETOROLAC TROMETHAMINE INJ/PF 30 MG/1 ML SDV IV SCH ×3 (02:51→17:09)
[2020-03-28] MEDS: OXYCODONE HCL IR 5 MG TABLET PO PRN ×4 (04:49→22:15)
[2020-03-28] MEDS: CEFAZOLIN SODIUM 2 GM in DEXTROSE 5%-WATER 100 ML IV SCH ×2 (05:46→13:22)
[2020-03-28] MEDS: LEVOTHYROXINE SODIUM 0.025 MG TABLET PO SCH (05:47)
[2020-03-28] MEDS: ACETAMINOPHEN 325 MG TABLET PO SCH ×4 (05:47→23:49)
--- NOTE | 2020-03-28 08:21 | PDOC PROGRESS REPORT ---
Subjective Progress Note for:: 03/28/20 Subjective:: Doing well this morning. Reports considerable pain relief. No acute events overnight. 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 upper extremity motor function grossly intact to radian median ulnar nerve AIN and PIN Pulses 2+, capillary refill less than 2 seconds Compartments soft, no tenderness to palpation Wound clean dry and intact, minimal output in the wound VAC overnight. Results Laboratory Results: 03/27/20 12:51 03/27/20 03/27/20 12:51 21:27 Potassium 3.1 L C-Reactive Protein 12.5 H Assessment & Plan - Diagnosis (1) Wound infection after surgery Is this a current diagnosis for this admission?: Yes Plan: Continue VAC ID consult pending Cultures pending Range of motion and weightbearing left upper extremity as tolerated Physical therapy Case management for assistance for home wound VAC care, home IV infusions PICC line ordered. - Time Time Spent with patient: Less than 15 minutes
[2020-03-28] MEDS: FUROSEMIDE 20 MG TABLET PO SCH ×2 (09:14→17:05)
[2020-03-28] MEDS: POLYETHYLENE GLYCOL 3350 POWDER 17 GM/1 PACKET PO SCH (09:15)
[2020-03-28] MEDS: AMLODIPINE BESYLATE 5 MG TABLET PO SCH (09:15)
[2020-03-28] MEDS: LISINOPRIL 10 MG TABLET PO SCH ×2 (09:16→22:13)
[2020-03-28] MEDS: GABAPENTIN 100 MG CAPSULE PO SCH ×2 (09:16→22:18)
[2020-03-28] MEDS: LORATADINE 10 MG TABLET PO SCH (09:16)
[2020-03-28] MEDS: PANTOPRAZOLE SODIUM 20 MG TABLET.DR PO SCH ×2 (09:16→17:04)
[2020-03-28] MEDS: ASPIRIN 325 MG TABLET PO SCH (09:16)
[2020-03-28] MEDS: FLUTICASONE NASAL SPRAY 50 MCG/SPRY 120 SPRAY/16 GM NASL SCH (09:17)
[2020-03-28] MEDS: CELECOXIB 200 MG CAPSULE PO SCH (09:19)
[2020-03-28] MEDS ORDERED: (PENDING PHARMACY ID) (Lisinopril [Lisinopril] 20 MG) PO SCH (10:00)
--- NOTE | 2020-03-28 15:04 | RADIOLOGY REPORT (SQ) ---
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 FLUOROSCOPY TIME: 18 seconds 1 images saved to PACS. TECHNIQUE: Fluoroscopic and ultrasound guided PICC placement. LIMITATIONS: None. PROCEDURE: After written consent and assessment were obtained, the patient was brought into the fluo roscopy room and placed supine on the table. Ultrasound evaluation of potential access sites were per formed. After successfully identifying a patent right upper extremity brachiocephalic vein, the right upper arm was prepped and draped in a sterile fashion along with the ultrasound probe. The entry sit e was anesthetized with 1% lidocaine. A 21 gauge 7 cm needle was advanced through the skin and into t he right brachiocephalic vein under live ultrasound guidance. An ultrasound image was saved to PACS confirming access site. A .018 guide wire was then inserted through the needle and into the venous s ystem. The needle was then removed and an 11 blade scalpel was used to make a 1cm skin incision. A 5 fr peel-away sheath was advanced over the wire and into the venous system. A measurement was then ma de using the existing wire and live fluoroscopic guidance. The wire was then removed and trimmed. The PICC was advanced through the peel-away sheath and into the venous system. The peel-away sheath was removed and the catheter was adhered to the patients arm with a stat lock. The catheter was then aspi rated and flushed and a sterile bandage was placed over the access site. A fluoroscopic spot image w as saved to PACS confirming the catheter tip within the SVC. IMPRESSION: SUCCESSFUL PLACEMENT OF A 5 FR DUAL LUMEN 36 CM PICC IN THE RIGHT BRACHIOCEPHALIC VEIN. COMMENT: Patient medication list reviewed: Yes- Quality ID# [id number]:Eligible professional attests to doc umenting in the medical record they obtained, updated, or reviewed the patient's current medications. . Quality ID 145: Final reports for procedures using fluoroscopy that document radiation exposure maykel juan, or exposure time and number of fluorographic images (if radiation exposure indices are not avail able) Quality ID #76: The patient was prepped and draped using maximum sterile barrier technique including cap, mask, sterile gown, sterile gloves, a large sterile sheet, hand hygiene, and 2% Chlorhexidine fo r cutaneous antisepsis. When ultrasound is used, sterile ultrasound techniques are followed requiring sterile gel and sterile probes. TECHNICAL DOCUMENTATION: JOB ID: [id number] 2010 [employer] All Rights Reserved rev-10/08 Reading location - IP/workstation name: [id number]
--- NOTE | 2020-03-28 15:14 | Progress Note ---
Provider Note Provider Note: ID Consult I was asked to review the chart on this patient for antibiotic recommendations. The patient is s/p left reverse shoulder arthroplasty. I was not able to find the date of this procedure in the chart. She was seen by Dr. Rosales in his office because of pain and drainage from the shoulder. The patient was taken to the OR yesterday. There was infection overlying the joint, but the joint itself did not appear to be infected. Intraoperative cultures are growing a lactose-fermenting GNR (likely Klebsiella pneumoniae). The patient is currently receiving cefazolin. Recommendations: If the joint is not involved, then the patient does not need a long course of antibiotics. While waiting for final identification and susceptibilities, would change antibiotics to ceftriaxone 2 gm IV daily. For a soft-tissue infection (not involving the prosthetic joint), 10 days of therapy should be adequate. Oral antibiotics should be adequate for a soft-tissue infection. If there is concern for infection of the joint, then would treat with IV antibiotics for 6 weeks. Please call me if there are questions. Shen Barrientos MD Pager: [phone]
[2020-03-28] MEDS: NORMAL SALINE 10 ML SDV (AFTER EACH USE) IV PRN (17:05)
[2020-03-28] MEDS: ROPINIROLE HCL 2 MG TABLET PO SCH (22:11)
[2020-03-28] MEDS: TEMAZEPAM 15 MG CAPSULE PO PRN (22:13)
[2020-03-28] MEDS: NORMAL SALINE 10 ML SDV (SCHEDULED) IV SCH (22:16)
[2020-03-29] MEDS: OXYCODONE HCL IR 5 MG TABLET PO PRN ×5 (04:08→23:20)
[2020-03-29] MEDS: ACETAMINOPHEN 325 MG TABLET PO SCH ×4 (05:18→23:20)
[2020-03-29] MEDS: LEVOTHYROXINE SODIUM 0.025 MG TABLET PO SCH (05:18)
--- NOTE | 2020-03-29 08:30 | PDOC PROGRESS REPORT ---
Subjective Progress Note for:: 03/29/20 Subjective:: Patient continues to do well this AM. No new events overnight. Worked well with PT. Reason For Visit: LEFT TOTAL SHOULDER WOUND INFECTION Physical Exam Vital Signs: Temp Pulse Resp BP Pulse Ox 98.6 F 100 16 102/59 L 95 03/29/20 07:00 03/29/20 07:00 03/29/20 07:00 03/29/20 07:00 03/29/20 07:00 Intake & Output 03/28/20 03/29/20 03/30/20 06:59 06:59 06:59 Intake Total 1500 2200 Output Total 1210 Balance 290 2200 Weight 68 kg 68 kg Physical Exam: NAD, AOX3 Upper extremity sensation grossly intact to radial median and ulnar nerve. upper extremity motor function grossly intact to radian median ulnar nerve AIN and PIN Pulses 2+, capillary refill less than 2 seconds No deformity noted full range of motion of the elbow wrist and fingers without pain Compartments soft, no tenderness to palpation Minimal VAC output. Wound appears healthy Results Laboratory Results: 03/27/20 12:51 Impressions: PICC Line Insertion 03/28/20 00:00 IMPRESSION: SUCCESSFUL PLACEMENT OF A 5 FR DUAL LUMEN 36 CM PICC IN THE RIGHT BRACHIOCEPHALIC VEIN. Assessment & Plan - Diagnosis (1) Wound infection after surgery Is this a current diagnosis for this admission?: Yes Plan: Potential Plan for DC home today - Will need final sensitivities for Abx. Will also follow for Oral options pending results, and PICC may be able to be removed. Will follow - Case management to assist in establishing home health needs. - Continue PT for left shoulder - Time Time Spent with patient: Less than 15 minutes
[2020-03-29] MEDS: ASPIRIN 325 MG TABLET PO SCH (10:05)
[2020-03-29] MEDS: FUROSEMIDE 20 MG TABLET PO SCH ×2 (10:05→17:22)
[2020-03-29] MEDS: CELECOXIB 200 MG CAPSULE PO SCH (10:05)
[2020-03-29] MEDS: PANTOPRAZOLE SODIUM 20 MG TABLET.DR PO SCH ×2 (10:06→17:22)
[2020-03-29] MEDS: LORATADINE 10 MG TABLET PO SCH (10:06)
[2020-03-29] MEDS: LISINOPRIL 10 MG TABLET PO SCH (10:07)
[2020-03-29] MEDS: AMLODIPINE BESYLATE 5 MG TABLET PO SCH (10:07)
[2020-03-29] MEDS: GABAPENTIN 100 MG CAPSULE PO SCH ×2 (10:07→21:00)
[2020-03-29] MEDS: POLYETHYLENE GLYCOL 3350 POWDER 17 GM/1 PACKET PO SCH (10:08)
[2020-03-29] MEDS: CEFTRIAXONE 2 GM/D5W RTU 2 GM/50 ML RTUPB IV SCH (10:09)
[2020-03-29] MEDS: FLUTICASONE NASAL SPRAY 50 MCG/SPRY 120 SPRAY/16 GM NASL SCH (10:10)
[2020-03-29] MEDS: NORMAL SALINE 10 ML SDV (SCHEDULED) IV SCH ×2 (10:14→21:03)
[2020-03-29] MEDS: ROPINIROLE HCL 2 MG TABLET PO SCH (21:02)
[2020-03-29] MEDS: TEMAZEPAM 15 MG CAPSULE PO PRN (21:02)
[2020-03-30] MEDS: LISINOPRIL 10 MG TABLET PO SCH ×3 (00:43→21:24)
[2020-03-30] MEDS: OXYCODONE HCL IR 5 MG TABLET PO PRN ×4 (04:19→21:25)
[2020-03-30] MEDS: LEVOTHYROXINE SODIUM 0.025 MG TABLET PO SCH (05:10)
[2020-03-30] MEDS: ACETAMINOPHEN 325 MG TABLET PO SCH ×3 (05:10→17:26)
[2020-03-30] MEDS: MORPHINE SULFATE 10 MG/ML INJ IV PRN ×3 (05:14→18:07)
--- NOTE | 2020-03-30 07:23 | PDOC PROGRESS REPORT ---
Subjective Progress Note for:: 03/30/20 Subjective:: Patient doing well this morning. No new complaints. Reason For Visit: LEFT TOTAL SHOULDER WOUND INFECTION Physical Exam Vital Signs: Temp Pulse Resp BP Pulse Ox 98.6 F 70 16 101/52 L 95 03/29/20 23:55 03/29/20 23:55 03/29/20 23:55 03/29/20 23:55 03/29/20 23:55 Intake & Output 03/29/20 03/30/20 03/31/20 06:59 06:59 06:59 Intake Total 2200 350 Balance 2200 350 Weight 68 kg 66.3 kg Physical Exam: No acute distress, alert and orient x3. Upper extremity sensation grossly intact to radial median and ulnar nerve. upper extremity motor function grossly intact to radian median ulnar nerve AIN and PIN Pulses 2+, capillary refill less than 2 seconds No deformity noted full range of motion of the elbow, wrist and fingers without pain Compartments soft, no tenderness to palpation skin intact Results Laboratory Results: 03/27/20 12:51 Impressions: PICC Line Insertion 03/28/20 00:00 IMPRESSION: SUCCESSFUL PLACEMENT OF A 5 FR DUAL LUMEN 36 CM PICC IN THE RIGHT BRACHIOCEPHALIC VEIN. Assessment & Plan - Diagnosis (1) Wound infection after surgery Is this a current diagnosis for this admission?: Yes Plan: Wound VAC changes every 3 to 5 days See me in the office in approximately 1 week Continue antibiotics, ceftriaxone 2 g daily for 14 days postop Home physical therapy Encourage full range of motion, 10 pound weight limit. -Discharge pending home care set up with case management. - Time Time Spent with patient: Less than 15 minutes
[2020-03-30] MEDS ORDERED: DOCUSATE SODIUM 100 MG CAPSULE PO PRN (07:27)
[2020-03-30] MEDS: FLUTICASONE NASAL SPRAY 50 MCG/SPRY 120 SPRAY/16 GM NASL SCH (11:04)
[2020-03-30] MEDS: GABAPENTIN 100 MG CAPSULE PO SCH ×2 (11:07→21:24)
[2020-03-30] MEDS: CELECOXIB 200 MG CAPSULE PO SCH (11:07)
[2020-03-30] MEDS: PANTOPRAZOLE SODIUM 20 MG TABLET.DR PO SCH ×2 (11:08→17:27)
[2020-03-30] MEDS: ASPIRIN 325 MG TABLET PO SCH (11:08)
[2020-03-30] MEDS: AMLODIPINE BESYLATE 5 MG TABLET PO SCH (11:08)
[2020-03-30] MEDS: FUROSEMIDE 20 MG TABLET PO SCH ×2 (11:09→17:27)
[2020-03-30] MEDS: POLYETHYLENE GLYCOL 3350 POWDER 17 GM/1 PACKET PO SCH (11:10)
[2020-03-30] MEDS: CEFTRIAXONE 2 GM/D5W RTU 2 GM/50 ML RTUPB IV SCH (11:21)
[2020-03-30] MEDS: LORATADINE 10 MG TABLET PO SCH (12:01)
[2020-03-30] MEDS: NORMAL SALINE 10 ML SDV (SCHEDULED) IV SCH ×2 (12:05→21:25)
[2020-03-30] MEDS: NORMAL SALINE 10 ML SDV (AFTER EACH USE) IV PRN (12:05)
[2020-03-30] MEDS: ROPINIROLE HCL 2 MG TABLET PO SCH (21:24)
[2020-03-30] MEDS: TEMAZEPAM 15 MG CAPSULE PO PRN (21:24)
[2020-03-31] MEDS: ACETAMINOPHEN 325 MG TABLET PO SCH ×5 (00:27→23:44)
[2020-03-31] MEDS: OXYCODONE HCL IR 5 MG TABLET PO PRN ×4 (02:30→21:38)
[2020-03-31] MEDS: MORPHINE SULFATE 10 MG/ML INJ IV PRN ×2 (04:44→18:23)
[2020-03-31] MEDS: LEVOTHYROXINE SODIUM 0.025 MG TABLET PO SCH (05:03)
--- NOTE | 2020-03-31 06:41 | PDOC PROGRESS REPORT ---
Subjective Progress Note for:: 03/31/20 Subjective:: Patient doing well. No acute events overnight. Wound VAC changed yesterday. Unable to leave yesterday due to obtaining wound VAC at home. Reason For Visit: LEFT TOTAL SHOULDER WOUND INFECTION Physical Exam Vital Signs: Temp Pulse Resp BP Pulse Ox 98.7 F 67 16 100/59 L 100 03/30/20 23:34 03/30/20 23:34 03/30/20 23:34 03/30/20 23:34 03/30/20 23:34 Intake & Output 03/29/20 03/30/20 03/31/20 06:59 06:59 06:59 Intake Total 2200 350 1570 Balance 2200 350 1570 Weight 68 kg 66.3 kg 69.5 kg Physical Exam: No acute distress, alert and orient x3 Upper extremity sensation grossly intact to radial median and ulnar nerve. upper extremity motor function grossly intact to radian median ulnar nerve AIN and PIN Pulses 2+, capillary refill less than 2 seconds No deformity noted full range of motion of the elbow, wrist and fingers without pain Compartments soft, no tenderness to palpation Dressing clean dry and intact, minimal VAC output. Results Laboratory Results: 03/27/20 12:51 03/27/20 16:15 Shoulder - Left Gram Stain - Final 03/27/20 16:15 Shoulder - Left Wound Culture - Final Klebsiella Pneumoniae Skin Sasah Impressions: PICC Line Insertion 03/28/20 00:00 IMPRESSION: SUCCESSFUL PLACEMENT OF A 5 FR DUAL LUMEN 36 CM PICC IN THE RIGHT BRACHIOCEPHALIC VEIN. Assessment & Plan - Diagnosis (1) Wound infection after surgery Is this a current diagnosis for this admission?: Yes Plan: See me in the office in approximately 1 week Continue antibiotics, ceftriaxone 2 g daily for 14 days postop Home physical therapy Encourage full range of motion, 10 pound weight limit. -Discharge pending home care set up with case management. -I will change her wound VAC tomorrow personally before discharge -Discharge tomorrow - Time Time Spent with patient: Less than 15 minutes
[2020-03-31] MEDS: POLYETHYLENE GLYCOL 3350 POWDER 17 GM/1 PACKET PO SCH (10:08)
[2020-03-31] MEDS: FLUTICASONE NASAL SPRAY 50 MCG/SPRY 120 SPRAY/16 GM NASL SCH (10:15)
[2020-03-31] MEDS: AMLODIPINE BESYLATE 5 MG TABLET PO SCH (10:16)
[2020-03-31] MEDS: CELECOXIB 200 MG CAPSULE PO SCH (10:16)
[2020-03-31] MEDS: LORATADINE 10 MG TABLET PO SCH (10:17)
[2020-03-31] MEDS: FUROSEMIDE 20 MG TABLET PO SCH ×2 (10:18→17:15)
[2020-03-31] MEDS: ASPIRIN 325 MG TABLET PO SCH (10:18)
[2020-03-31] MEDS: LISINOPRIL 10 MG TABLET PO SCH ×2 (10:19→23:43)
[2020-03-31] MEDS: PANTOPRAZOLE SODIUM 20 MG TABLET.DR PO SCH ×2 (10:20→17:15)
[2020-03-31] MEDS: GABAPENTIN 100 MG CAPSULE PO SCH ×2 (10:20→21:38)
[2020-03-31] MEDS: CEFTRIAXONE 2 GM/D5W RTU 2 GM/50 ML RTUPB IV SCH (10:21)
[2020-03-31] MEDS: NORMAL SALINE 10 ML SDV (SCHEDULED) IV SCH ×2 (11:57→21:39)
[2020-03-31] MEDS: TEMAZEPAM 15 MG CAPSULE PO PRN (21:38)
[2020-03-31] MEDS: ROPINIROLE HCL 2 MG TABLET PO SCH (21:38)
[2020-04-01] MEDS: OXYCODONE HCL IR 5 MG TABLET PO PRN ×3 (02:45→12:05)
[2020-04-01] MEDS: ACETAMINOPHEN 325 MG TABLET PO SCH ×2 (05:19→12:06)
[2020-04-01] MEDS: LEVOTHYROXINE SODIUM 0.025 MG TABLET PO SCH (05:19)
[2020-04-01] MEDS: MORPHINE SULFATE 10 MG/ML INJ IV PRN ×2 (09:40→13:46)
[2020-04-01] MEDS: POLYETHYLENE GLYCOL 3350 POWDER 17 GM/1 PACKET PO SCH (10:09)
[2020-04-01] MEDS: AMLODIPINE BESYLATE 5 MG TABLET PO SCH (10:21)
[2020-04-01] MEDS: FLUTICASONE NASAL SPRAY 50 MCG/SPRY 120 SPRAY/16 GM NASL SCH (10:21)
[2020-04-01] MEDS: FUROSEMIDE 20 MG TABLET PO SCH (10:21)
[2020-04-01] MEDS: GABAPENTIN 100 MG CAPSULE PO SCH (10:21)
[2020-04-01] MEDS: ASPIRIN 325 MG TABLET PO SCH (10:21)
[2020-04-01] MEDS: LORATADINE 10 MG TABLET PO SCH (10:22)
[2020-04-01] MEDS: CEFTRIAXONE 2 GM/D5W RTU 2 GM/50 ML RTUPB IV SCH (10:22)
[2020-04-01] MEDS: PANTOPRAZOLE SODIUM 20 MG TABLET.DR PO SCH (10:22)
[2020-04-01] MEDS: NORMAL SALINE 10 ML SDV (SCHEDULED) IV SCH (10:22)
[2020-04-01] MEDS: LISINOPRIL 10 MG TABLET PO SCH (10:22)
[2020-04-01] MEDS: CELECOXIB 200 MG CAPSULE PO SCH (10:23)
[2020-04-01 13:24] VITALS: BP 110/59
--- NOTE | 2020-04-04 09:59 | PDOC DISCHARGE SUMMARY ---
Impression - Admit/DC Date/PCP Admission Date/Primary Care Provider: 03/27/20 11:29 KRIS POLANCO PA-C Discharge Date: 04/01/20 - Discharge Diagnosis (1) Wound infection after surgery Is this a current diagnosis for this admission?: Yes - Assessment Summary: Patient was admitted on 03/27/2020 for a left shoulder incision and debridement. At that time they had purulence dehiscence of the distal aspect of there prior reverse total shoulder arthroplasty wound. After operative debridement which ultimately found the infection to be isolated to the soft tissue and not involving the joint, the patient was admitted for infectious disease consult, wound VAC management, postoperative pain control, physical therapy, and discharge planning. I had a direct conversation with infectious disease and we determined the plan for her postoperative course of antibiotics. Their recommendations were followed. Patient was then set up for home IV therapy. Unfortunately due to the patient's sulfa allergy Bactrim was not a good option and IV ceftriaxone was provided. The patient was potentially stable for discharge on 03/29/2020, unfortunately due to discharge planning matters including difficulty in getting approval for wound VAC therapy the patient remained in house over the weekend until further communication could be obtained with the wound VAC company and insurance. Patient was stable for discharge home on 04/01/2020. Over the course of their stay they also worked with physical therapy and are encouraged to continue this at home. Home therapy was ordered as well to encourage full range of motion of the left shoulder nonweightbearing at this time. The patient had no acute events over the course of their stay. - Additional Information Resuscitation Status: Full Code Discharge Diet: As Tolerated Discharge Activity: No Driving, No Lifting Over 10 Pounds, Slowly Increase Activity, No tub bath Referrals: JOSE DE JESUS RAMOS JR, DO [ACTIVE PROVISIONAL STAFF] - 04/09/20 2:30 pm Prescriptions: Heparin Sodium,Porcine [Heparin Flush 10 Unit/ml 5 ml Disp.syrg] 30 unit IV .AFTER EACH USE PRN #30 disp.syrin PRN Reason: Heparin Sodium,Porcine [Heparin Flush 10 Unit/ml 5 ml Disp.syrg] 30 unit IV Q12 #60 disp.syrin Temazepam [Restoril 15 mg Capsule] 15 mg PO HSP PRN 20 Days #20 capsule PRN Reason: Home Medications: Lisinopril 20 mg PO BID 02/21/16 Ropinirole HCl 3 mg PO QHS 02/21/16 Albuterol Sulfate [Proair HFA Inhalation Aerosol 8.5 gm MDI] 2 puff IH Q6HP PRN 04/05/19 Amlodipine Besylate [Norvasc 5 mg Tablet] 5 mg PO DAILY 04/05/19 Furosemide [Lasix] 20 mg PO BID 04/05/19 Levothyroxine Sodium 25 mcg PO Q6AM 04/05/19 Omeprazole Magnesium [Prilosec Otc] 20 mg PO BID 04/05/19 Fluticasone Propionate [Flonase Nasal Austin 50 Mcg/Austin 16 gm] 2 sprays NASL DAILY 04/27/19 Loratadine [Claritin 10 mg Tablet] 10 mg PO DAILY 04/27/19 Acetaminophen [Tylenol 325 mg Tablet] 975 mg PO Q6 tablet 02/21/20 Tramadol HCl [Ultram 50 mg Tablet] 50 mg PO Q4HP PRN tablet 02/21/20 Acetaminophen [Tylenol 325 mg Tablet] 975 mg PO Q6 tablet 03/29/20 Heparin Sodium,Porcine [Heparin Flush 10 Unit/ml 5 ml Disp.syrg] 30 unit IV .AFTER EACH USE PRN #30 disp.syrin 03/29/20 Heparin Sodium,Porcine [Heparin Flush 10 Unit/ml 5 ml Disp.syrg] 30 unit IV Q12 #60 disp.syrin 03/29/20 Oxycodone HCl [Oxy-Ir 5 mg Tablet] 5 mg PO Q4HP PRN tablet 03/29/20 Temazepam [Restoril 15 mg Capsule] 15 mg PO HSP PRN 20 Days #20 capsule 03/29/20 Tramadol HCl [Ultram 50 mg Tablet] 50 mg PO Q4HP PRN tablet 03/29/20 History of Present Illiness History of Present Illness: EMRE ALONZO is a 65 year old female Physical Exam Vital Signs: Temp Pulse Resp BP Pulse Ox 98.0 F 82 17 110/59 L 99 04/01/20 13:21 04/01/20 13:21 04/01/20 13:21 04/01/20 13:21 04/01/20 13:21 Results Laboratory Results: Potassium 3.1 mmol/L (3.6-5.0) L 03/27/20 12:51 C-Reactive Protein 12.5 mg/L (<10.0) H 03/27/20 21:27 SARS-CoV-2 (PCR) NEGATIVE (NEGATIVE) 03/27/20 11:44 Impressions: PICC Line Insertion 03/28/20 00:00 IMPRESSION: SUCCESSFUL PLACEMENT OF A 5 FR DUAL LUMEN 36 CM PICC IN THE RIGHT BRACHIOCEPHALIC VEIN. Stroke Is this a Stroke Patient?: No Acute Heart Failure Is this a Heart Failure Patient?: No
== END 2020-04-01 15:20 | disposition home health service (06) | DRG 502 ==
LOC: OROUT 11:28 → 4W 11:29
PROVIDERS: ADMIT Orthopaedic Surgery; ATTEND Orthopaedic Surgery
PROC: 0JDF0ZZ Extraction of Left Upper Arm Subcutaneous Tissue and Fascia, Open Approach (ICD-10-PCS; principal; 2020-03-27 14:30)
PROC: 02HV33Z Insertion of Infusion Device into Superior Vena Cava, Percutaneous Approach (ICD-10-PCS; 2020-03-28)
PROC: B518ZZA Fluoroscopy of Superior Vena Cava, Guidance (ICD-10-PCS; 2020-03-28)
PROC: B548ZZA Ultrasonography of Superior Vena Cava, Guidance (ICD-10-PCS; 2020-03-28)
DX: T84.69XA Infection and inflammatory reaction due to internal fixation device of other site, initial encounter (principal); F31.9 Bipolar disorder, unspecified; G47.00 Insomnia, unspecified; I10 Essential (primary) hypertension; E03.9 Hypothyroidism, unspecified; F41.9 Anxiety disorder, unspecified; I25.10 Atherosclerotic heart disease of native coronary artery without angina pectoris; Z20.828 Contact with and (suspected) exposure to other viral communicable diseases; Y83.1 Surgical operation with implant of artificial internal device as the cause of abnormal reaction of the patient, or of later complication, without mention of misadventure at the time of the procedure; I25.2 Old myocardial infarction; Z88.0 Allergy status to penicillin; Z88.2 Allergy status to sulfonamides; Z88.8 Allergy status to other drugs, medicaments and biological substances; Z79.899 Other long term (current) drug therapy; Z80.9 Family history of malignant neoplasm, unspecified; Z84.1 Family history of disorders of kidney and ureter; Z82.3 Family history of stroke; Z82.49 Family history of ischemic heart disease and other diseases of the circulatory system
CPT/HCPCS: 00300; 36415; 36573; 84132; 86140; 87070; 87075; 87077; 87186; 87205; 87635; C9803; J0330; J0690; J0696; J1100; J1580; J1642; J1885; J2250; J2270; J2370; J2405; J2704; J3010; J3370; J3490; J7060

== ENCOUNTER 2020-04-17 01:57 | Emergency (ER) | payer MEDICARE, MEDICAID ==
--- NOTE | 2020-04-17 02:27 | ER Document Report ---
ED General - General Chief Complaint: Shoulder Injury Stated Complaint: FALL/LEFT SHOULDER PAIN Time Seen by Provider: 04/17/20 02:04 Primary Care Provider: JOSE DE JESUS ARMOS JR, DO [ACTIVE PROVISIONAL STAFF] - Follow up as needed KRIS POLANCO PA-C [Primary Care Provider] - Follow up as needed TRAVEL OUTSIDE OF THE [place] IN LAST 30 DAYS: No - HPI Notes: Patient is a 65-year-old female who had a recent left shoulder reverse arthroplasty, with subsequent soft tissue infection, PICC line placement, who presents to the emergency department for evaluation of pain to the left arm after a fall. She was sleeping in her recliner, went to get up, when she tripped over a cat in a blanket at her feet. She fell directly onto her left side. She denies hitting her head or losing consciousness. No neck or back pain. She complains of pain in her left shoulder and upper arm. She rates it an 8 out of 10. She denies any numbness or tingling. No nausea or vomiting. She states that she has been taking her home medications as prescribed, was just recently given a prescription for Flexeril which she has not yet filled. - Related Data Allergies/Adverse Reactions: Penicillins Allergy (Severe, Verified 03/27/20 12:22) Anaphylaxis Sulfa (Sulfonamide Antibiotics) Allergy (Severe, Verified 03/27/20 12:22) Anaphylaxis iodine Allergy (Verified 03/27/20 12:22) Past Medical History - General Information source: Patient - Social History Smoking Status: Former Smoker Family History: CAD, DM - Past Medical History Cardiac Medical History: Reports: Hx Congestive Heart Failure, Hx Heart Attack - 2015, Hx Hypertension Denies: Hx Atrial Fibrillation, Hx Coronary Artery Disease, Hx Hypercholesterolemia, Hx Peripheral Vascular Disease, Hx Pulmonary Embolism, Hx Heart Murmur Pulmonary Medical History: Reports: Hx Asthma - allergy induced Denies: Hx Bronchitis, Hx COPD, Hx Pneumonia, Hx Respiratory Failure, Hx Sleep Apnea, Hx Tuberculosis Neurological Medical History: Denies: Hx Cerebrovascular Accident, Hx Seizures, Hx Parkinson's Disease Endocrine Medical History: Reports: Hx Hypothyroidism. Denies: Hx Graves' Disease, Hx Hyperthyroidism Renal/ Medical History: Reports: Hx Kidney Stones - 12 years ago . Denies: Hx End Stage Renal Disease, Hx Peritoneal Dialysis Malignancy Medical History: Denies: Hx Lung Cancer GI Medical History: Reports: Hx Gastroesophageal Reflux Disease. Denies: Hx Crohn's Disease, Hx Hepatitis, Hx Hiatal Hernia, Hx Irritable Bowel, Hx Liver Failure, Hx Pancreatitis, Hx Ulcer Musculoskeletal Medical History: Reports Hx Arthritis - ankles, knees, R elbow , Denies Hx Fibromyalgia, Denies Hx Multiple Sclerosis, Denies Hx Muscular Dystrophy, Denies Hx Systemic Lupus Erythematosus Psychiatric Medical History: Reports: Hx Bipolar Disorder Denies: Hx Dementia, Hx Depression, Hx Post Traumatic Stress Disorder, Hx Schizophrenia Traumatic Medical History: Denies: Hx Fractures Infectious Medical History: Denies: Hx Hepatitis Past Surgical History: Reports: Hx Section, Hx Orthopedic Surgery - left shoulder replacement. Denies: Hx Appendectomy, Hx Bowel Surgery, Hx Cholecystectomy, Hx Colostomy, Hx Coronary Artery Bypass Graft, Hx Gastric Bypass Surgery, Hx Herniorrhaphy, Hx Hysterectomy, Hx Mastectomy, Hx Open Heart Surgery, Hx Pacemaker, Hx Tonsillectomy - Immunizations Hx Diphtheria, Pertussis, Tetanus Vaccination: Yes Hx Pneumococcal Vaccination: 05/24/18 Review of Systems - Review of Systems Constitutional: No symptoms reported EENT: No symptoms reported Cardiovascular: No symptoms reported Respiratory: No symptoms reported Gastrointestinal: No symptoms reported Genitourinary: No symptoms reported Musculoskeletal: See HPI Skin: No symptoms reported Neurological/Psychological: No symptoms reported Physical Exam - Vital signs Vitals: Pulse Ox 100 04/17/20 02:03 - Notes Notes: This is a 65-year-old female who appears her stated age, no acute distress. Vital signs reviewed, please refer to chart. Head is normocephalic, atraumatic. Pupils equal round, reactive to light. Neck is supple without meningismus. Heart is regular rate and rhythm. Lungs are clear to auscultation bilaterally. Abdomen is soft, nontender, normoactive bowel sounds throughout. Extremities without cyanosis, clubbing. Posterior calves are nontender. Peripheral pulses are equal. Skin is warm and dry. Examination of the left upper extremity is well healing, well approximated anterior shoulder scar without signs of dehiscence or infection. She has obvious deformity at the mid humerus. She has tenderness associated. No break in the skin integrity. She has no tenderness over the olecranon, radius, ulna. She is full range of motion at the elbow, wrist, fingers, thumb. Neurovascularly intact distally. Capillary refill is brisk. Course - Re-evaluation Re-evalutation: 04/17/20 02:27 Patient is a 65-year-old female presents to the emergency department for evaluation. She is obvious deformity of the left upper extremity. X-rays of the shoulder and humerus have been ordered. She is currently stable, we will continue to monitor. 04/17/20 05:11 Patient's x-ray revealed a midshaft humeral fracture, just beyond the prosthesis. Her shoulder appears to be intact. She is neurovascularly intact distally. Long-arm posterior splint and sling were ordered. These were placed by [facility]. Patient was neurovascularly intact following. She tolerated well. I will send her home, she is to follow-up very closely with Dr. Ramos, her orthopedic surgeon. She is to return to the emergency department with worsening or new concerning symptoms of any sort. - Vital Signs Vital signs: Temp Pulse Resp BP Pulse Ox 98.0 F 91 16 111/76 98 04/17/20 02:04 04/17/20 02:04 04/17/20 02:04 04/17/20 02:04 04/17/20 02:04 - Diagnostic Test Radiology reviewed: Image reviewed, Reports reviewed Radiology results interpreted by me: 04/17/20 05:12 Humerus X-Ray 04/17/20 02:14 IMPRESSION: Interval transverse fracture through the mid left humeral diaphysis at the level of the distal stem of the left shoulder prosthesis with slight displacement and angulation of the fracture fragments. Shoulder X-Ray 04/17/20 02:14 IMPRESSION: 1. Interval transverse fracture through the mid left humeral diaphysis at the level of the stem of the left shoulder prosthesis with associated mild displacement and angulation of the fracture fragments. 2. Mild diffuse bone demineralization. Discharge - Discharge Clinical Impression: Humeral shaft fracture Qualifiers: Encounter type: initial encounter Fracture type: closed Fracture morphology: transverse Fracture alignment: displaced Laterality: left Qualified Code(s): S42.322A - Displaced transverse fracture of shaft of humerus, left arm, initial encounter for closed fracture Condition: Stable Disposition: HOME, SELF-CARE Instructions: Fracture ([facility]), Shoulder Dislocation ([facility]) Additional Instructions: Please contact Dr. Ramos for follow-up as soon as possible. Peterson as needed for severe pain. Please watch for dizziness, drowsiness, constipation with this medication. If you develop increased pain, numbness, or any other new or concerning symptoms, please return immediately to the emergency department for reevaluation. Referrals: KRIS POLANCO PA-C [Primary Care Provider] - Follow up as needed JOSE DE JESUS RAMOS JR, DO [ACTIVE PROVISIONAL STAFF] - Follow up as needed
--- NOTE | 2020-04-17 03:22 | RADIOLOGY REPORT (SQ) ---
EXAM: HUMERUS LEFT CLINICAL DATA: 65 years Female fall TECHNICAL DATA: Two x-ray views of the left humerus were performed on 04/17/2020 at 2:24 AM. COMPARISONS: Left shoulder performed on 02/20/2020 FINDINGS: Since the previous examination there has been an interval transverse fracture through the distal stem of the left shoulder prosthesis through the mid humeral diaphysis. There is minimal displacement and angulation of the fracture fragments. A reverse shoulder arthroplasty is noted and appears otherwise grossly stable. The visualized acromioclavicular joint appears intact. The shoulder joint is grossly intact. The visualized elbow joint is grossly unremarkable as visualized. Bone mineralization is slightly diminished.. There is soft tissue swelling surrounding the mid left humerus. IMPRESSION: Interval transverse fracture through the mid left humeral diaphysis at the level of the distal stem of the left shoulder prosthesis with slight displacement and angulation of the fracture fragments.
--- NOTE | 2020-04-17 03:26 | RADIOLOGY REPORT (SQ) ---
EXAM: SHOULDER LEFT 2 OR MORE VIEWS CLINICAL DATA: 65 years Female fall, injury TECHNICAL DATA: Two x-ray views of the left shoulder were performed on 04/17/2020 at 2:26 AM. COMPARISONS: Left shoulder performed on 02/06/2020 and 02/20/2020 FINDINGS: There is a total reverse left shoulder arthroplasty. The most recent study there has been an interval transverse fracture through the mid left humeral diaphysis at the level of the distal stem of the prosthesis with mild displacement and angulation of the fracture fragments. The shoulder joint and acromioclavicular joint are intact. No additional fractures are identified. The visualized portions of the left hemithorax are unremarkable. Bone mineralization is slightly diminished. There is a soft tissue calcification adjacent to the level of the left humeral head laterally. There is soft tissue swelling surrounding the mid left humerus. IMPRESSION: 1. Interval transverse fracture through the mid left humeral diaphysis at the level of the stem of the left shoulder prosthesis with associated mild displacement and angulation of the fracture fragments. 2. Mild diffuse bone demineralization.
[2020-04-17] MEDS ORDERED: FENTANYL CITRATE INJ/PF 100 MCG/2 ML AMPUL IV ONE (04:24)
[2020-04-17] MEDS ORDERED: HYDROCODONE/ACETAMINOPHEN 5-325 MG (6 TAB/ER DISP) PO PRN (05:13)
[2020-04-17 06:01] VITALS: BP 105/52
== END 2020-04-17 06:02 | disposition home or self-care (01) ==
LOC: ER 01:57
DX: S42.322A Displaced transverse fracture of shaft of humerus, left arm, initial encounter for closed fracture (principal); W01.0XXA Fall on same level from slipping, tripping and stumbling without subsequent striking against object, initial encounter; Y93.89 Activity, other specified; I10 Essential (primary) hypertension; J45.909 Unspecified asthma, uncomplicated; Z96.612 Presence of left artificial shoulder joint; Z87.892 Personal history of anaphylaxis; Z88.0 Allergy status to penicillin; Z88.2 Allergy status to sulfonamides; Z87.891 Personal history of nicotine dependence
CPT/HCPCS: 99284; 96374; 73060; 73030; 29105; J3010; A9270